=== PATIENT | male | born 1945 | race Caucasian/White ===

== ENCOUNTER 2021-09-17 15:03 | Outpatient (CLI) | payer MEDICARE, OTHER ==
--- NOTE | 2021-09-17 15:59 | XRAY Report ---
PROCEDURE: Foot 3 View BILAT INDICATIONS: PX IN FEET TECHNIQUE: 3 views of the bilateral feet were acquired. COMPARISON: None FINDINGS: Bones: No fractures or dislocations. No suspicious bony lesions. On the right, there are periartic ular erosions involving the head of the fifth metatarsal at the fifth MTP joint and head of the first proximal phalanx at the great toe IP joint. On the left, there is a periarticular erosion at the fir st metatarsal head at the MTP joint and third metatarsal head at the MTP joint Soft tissues: No tibiotalar joint effusion. Achilles tendon appears normal. IMPRESSION: 1. No evidence acute bony abnormality of the feet bilaterally. 2. There are bilateral periarticular erosions. Consider possible gout or other inflammatory arthritis . Reviewed by: Pascual Diana MD on 09/17/2021 3:58 PM PDT Approved by: Pascual Diana MD on 09/17/2021 3:58 PM PDT Station ID: [id number]
== END 2021-09-17 15:04 | disposition home or self-care (01) ==
LOC: DI 15:03
PROVIDERS: ATTEND Podiatrist
DX: M85.872 Other specified disorders of bone density and structure, left ankle and foot (principal); M85.871 Other specified disorders of bone density and structure, right ankle and foot